=== PATIENT | female | born 1985 | race Caucasian/White ===

== ENCOUNTER → 2023-06-15 | Outpatient (CLI) | payer OTHER, SELFPAY ==
--- NOTE | 2023-06-15 16:56 | RAD_ITS ---
STUDY: X-RAY - LEFT ELBOW REASON FOR EXAM: Female, 38 years old. injury TECHNIQUE: 3 view(s) of the elbow. COMPARISON: None. FINDINGS: Normal visualized humerus, radius and ulna. Normal radiocapitellar and ulnotrochlear articulations. There is a mildly positive anterior fat pad sign raising question of joint effusion and possibility of occult intra-articular fracture cannot be entirely excluded. RAD/Elbow min 3 Views IMPRESSION: No definitive evidence for acute fracture or dislocation. . Cannot definitively exclude radiographically occult nondisplaced intra-articular fracture. Electronically Signed: Tristen Gupta MD at 17:34 EDT ,
== END | disposition home or self-care (01) ==
PROVIDERS: Referring Provider Physician Assistant; Visit Provider Physician Assistant
DX: S50.02XA Contusion of left elbow, initial encounter (principal); S46.912A Strain of unspecified muscle, fascia and tendon at shoulder and upper arm level, left arm, initial encounter
CPT/HCPCS: 73080